=== PATIENT | male | born 1955 | race Caucasian/White ===

== ENCOUNTER 2016-12-10 17:23 | Observation (INO) | payer MEDICARE, OTHER ==
[~2016-12-10] VITALS: Ht 188 cm; Wt 156.1 kg
[2016-12-10] VITALS (42 sets, daily range): BP systolic 97–138; BP diastolic 50–83; PULSE 66–70; TEMP 97; O2SAT 93–100
[2016-12-10 18:18] LABS: ANION GAP 15 mmol/L (7-16); BLOOD UREA NITROGEN 15 mg/dL (9-20); CALCIUM 9.4 mg/dL (8.4-10.2); CARBON DIOXIDE 25 mmol/L (22-30); CHLORIDE 101 mmol/L (98-107); CREATININE, serum 1.23 mg/dL (0.66-1.25); GLUCOSE 162 mg/dL (74-106); POTASSIUM 4.3 mmol/L (3.4-5.0); SODIUM 140 mmol/L (137-145)
[2016-12-10 18:25] LABS: B-TYPE NATRIURETIC PEPTIDE 58 pg/mL (0-125)
[2016-12-10 18:28] LABS: BASO # 0.1 (0.0-0.2); BASO % 0.4 % (0.0-2.0); EOS % 0.3 % (0-4.0); GRAN # 9.7 (1.4-6.5); GRAN % 82.1 % (42.2-75.2); HEMATOCRIT 44.1 % (42.0-52.0); HEMOGLOBIN 14.8 g/dl (13.5-18.0); LYMPH # 1.5 (1.2-3.4); MEAN CELL VOLUME 91 fl (80.0-100.0); MEAN CORPUSCULAR HEMOGLOBIN 31 pg (27.0-31.0); MEAN CORPUSCULAR HGB CONC 34 g/dl (33.0-37.0); MEAN PLATELET VOLUME 9.8 fl (7.4-10.4); MONO # 0.4 (0.1-0.6); MONO % 3.7 % (1.7-9.3); PLATELET COUNT 279 K/mm3 (130-400); RED BLOOD COUNT 4.83 M/mm3 (4.20-5.60); REDCELL DISTRIBUTION WIDTH-CV 12.5 % (11.5-14.5); WHITE BLOOD COUNT 11.8 K/mm3 (4.8-10.8)
[2016-12-10 18:31] LABS: TROPONIN-I < 0.012 ng/mL (0.000-0.034)
[2016-12-10 18:37] LABS: CREATINE KINASE 46 U/L (55-170)
[2016-12-10 18:43] LABS: INR 1.5 (0.8-3.0); PROTHROMBIN TIME 17.1 SECONDS (9.7-12.8)
[2016-12-10 19:57] LABS: HYALINE CAST >12 /lpf; PH 5 (5-8); URINE APPEARANCE Clear; URINE BACTERIA None Seen /hpf; URINE BILIRUBIN Positive (NEGATIVE); URINE BLOOD Negative (NEGATIVE); URINE COLOR Amber; URINE GLUCOSE Negative (NEGATIVE); URINE KETONE Negative (NEGATIVE); URINE UROBILINOGEN Negative (NEGATIVE); URINE WBC 0-2 /hpf
[2016-12-10] MEDS ORDERED: LASIX 20MG TABL20 MG PO (22:01)
[2016-12-10] MEDS ORDERED: K-TAB20 (22:02)
[2016-12-10] MEDS ORDERED: XARELTO20 MG PO (22:02)
[2016-12-10] MEDS ORDERED: BLOOD PRESSURE (22:03)
[2016-12-10] MEDS ORDERED: INHALER (22:03)
[2016-12-10] MEDS ORDERED: D-2000 90 MG-201 TAB PO (22:03)
[2016-12-11] VITALS (741 sets, daily range): BP systolic 114–144; BP diastolic 66–79; PULSE 55–62; TEMP 97.5–98.1; O2SAT 81–100
[2016-12-11 05:35] LABS: BASO # 0.1 (0.0-0.2); BASO % 0.7 % (0.0-2.0); EOS # 0.1 (0.0-0.7); GRAN % 66.8 % (42.2-75.2); HEMATOCRIT 37.3 % (42.0-52.0); LYMPH # 2.7 (1.2-3.4); LYMPH % 25.6 % (20.0-51.0); MEAN CELL VOLUME 93 fl (80.0-100.0); MEAN CORPUSCULAR HGB CONC 33 g/dl (33.0-37.0); MEAN PLATELET VOLUME 9.5 fl (7.4-10.4); MONO # 0.6 (0.1-0.6); MONO % 5.3 % (1.7-9.3); REDCELL DISTRIBUTION WIDTH-CV 12.6 % (11.5-14.5); WHITE BLOOD COUNT 10.5 K/mm3 (4.8-10.8)
[2016-12-11 05:36] LABS: HEMOGLOBIN 12.2 g/dl (13.5-18.0); MEAN CORPUSCULAR HEMOGLOBIN 31 pg (27.0-31.0); PLATELET COUNT 175 K/mm3 (130-400)
[2016-12-11 05:44] LABS: CALCIUM 7.9 mg/dL (8.4-10.2); CREATININE, serum 0.64 mg/dL (0.66-1.25); POTASSIUM 4.1 mmol/L (3.4-5.0)
[2016-12-11 10:12] LABS: ALBUMIN 3.1 gm/dL (3.5-5.0); BILIRUBIN,DIRECT 0.3 mg/dL (0.0-0.4); BILIRUBIN,TOTAL 0.3 mg/dL (0.0-1.0); TOTAL PROTEIN 6.2 gm/dL (6.4-8.2)
[2016-12-11] MEDS ORDERED: AMOXICILLIN 8751 TAB PO (12:36)
== END 2016-12-11 13:55 | disposition home or self-care (01) ==
LOC: COL.ER 17:23 → ICU 18:57
PROVIDERS: Emergency Medicine; Family Medicine; Nurse Practitioner Family
DX: T67.5XXA Heat exhaustion, unspecified, initial encounter (principal); I95.9 Hypotension, unspecified; N17.9 Acute kidney failure, unspecified; I73.9 Peripheral vascular disease, unspecified; Z66 Do not resuscitate; I10 Essential (primary) hypertension; Z86.718 Personal history of other venous thrombosis and embolism; Z86.711 Personal history of pulmonary embolism; Z79.01 Long term (current) use of anticoagulants
CPT/HCPCS: G0378; J1885; J7030; Q9967